=== PATIENT | female | born 1980 | race Caucasian/White ===

== ENCOUNTER 2016-10-01 10:00 | Outpatient (CLI) | payer OTHER ==
[~2016-10-01] VITALS: Ht 175.3 cm; Wt 146.1 kg
[2016-10-01] MEDS ORDERED: HYDR-3820 PO (10:28)
[2016-10-01] MEDS ORDERED: ONDN4T PO (10:28)
[2016-10-01] MEDS ORDERED: HYOS0.1218 SL (10:28)
[2016-10-01] MEDS ORDERED: TIZA4TAB3 PO (10:28)
[2016-10-01] MEDS ORDERED: TRAM50TA2 PO (10:28)
== END 2016-10-01 13:17 ==
LOC: PREOP 10:00
PROVIDERS: ATTEND Surgery
DX: Z01.818 Encounter for other preprocedural examination (principal); K82.8 Other specified diseases of gallbladder

== ENCOUNTER 2016-10-03 08:34 | Day surgery (SDC) | payer OTHER ==
[~2016-10-03] VITALS: Ht 175.3 cm; Wt 146.1 kg
[~2016-10-03 08:34] MED LIST: HYDR-3820 PO; HYOS0.1218 SL; ONDN4T PO; TIZA4TAB3 PO; TRAM50TA2 PO
[2016-10-03] MEDS ORDERED: ceFAZolin INJECTION 3,000 MG in NS (IVPB) 100 ML IV ONE (09:00)
[2016-10-03] MEDS ORDERED: LACTATED RINGERS 1,000 ML IV PRN (09:03)
[2016-10-03] MEDS ORDERED: FAMOTIDINE 20MG/2ML IV (PEPCID) IV ONE (09:15)
[2016-10-03 09:23] VITALS: BP 125/69
[2016-10-03 09:25] LABS: BASOPHILS % (AUTO) 0 % (0-10); EOSINOPHILS # (AUTO) 0.2 10^3/uL (0.0-0.3); EOSINOPHILS % (AUTO) 2 % (0-10); LYMPHOCYTES # (AUTO) 2.5 X 10^3 (1.0-4.0); LYMPHOCYTES % (AUTO) 34 % (12-44); MEAN CORPUSCULAR HEMOGLOBIN 30 PG (25-34); MEAN CORPUSCULAR HGB CONC 33 G/DL (32-36); MEAN CORPUSCULAR VOLUME 92 FL (80-99); MEAN PLATELET VOLUME 10.5 FL (7.4-10.4); MONOCYTES # (AUTO) 0.5 X 10^3 (0.0-1.0); MONOCYTES % (AUTO) 7 % (0-12); NEUTROPHILS # (AUTO) 4.1 X 10^3 (1.8-7.8); NEUTROPHILS % (AUTO) 57 % (42-75); PLATELET COUNT 255 10^3/uL (130-400); RED CELL DISTRIBUTION WIDTH 13.2 % (10.0-14.5); WHITE BLOOD COUNT 7.2 10^3/uL (4.3-11.0)
--- NOTE | 2016-10-03 09:36 | Progress Note-Pre Operative ---
Pre-Operative Progress Note H&P Reviewed The H&P was reviewed, patient examined and no changes noted. Date H&P Reviewed: Oct 03, 2016 Time H&P Reviewed: 09:32 Pre-Operative Diagnosis: Biliary Dyskinesia RJ MUÑIZ DO Oct 03, 2016 09:36
[2016-10-03] MEDS ORDERED: LIDOCAINE/EPI 1%-1:100,000 (XYLOCAINE) 20ML ONE (09:54)
[2016-10-03] MEDS ORDERED: fentaNYL INJECTION 250 MCG/5 ML AMP ONE (10:07)
[2016-10-03] MEDS ORDERED: SEVOFLURANE (ULTANE) 15 ML INHAL SOLN ONE (10:07)
[2016-10-03] MEDS ORDERED: DEXAMETHASONE PF 10 MG/ML (DECADRON) VIAL ONE (10:07)
[2016-10-03] MEDS ORDERED: proPOfol 200 MG/20 ML (DIPRIVAN) VIAL IV ONE (10:07)
[2016-10-03] MEDS ORDERED: ROCURONIUM 50 MG/5 ML (ZEMURON) VIAL IV ONE (10:07)
[2016-10-03] MEDS ORDERED: LACTATED RINGERS 1,000 ML IV ONE ×2 (10:07→12:04)
[2016-10-03] MEDS ORDERED: ONDANSETRON 4 MG/2 ML (SDV) Z0FRAN ONE ×2 (10:07→12:18)
[2016-10-03] MEDS ORDERED: LIDOCAINE PF 2% 10 ML (XYLOCAINE) AMP ONE (10:07)
[2016-10-03] MEDS ORDERED: MIDAZOLAM 2 MG/2 ML (VERSED) VIAL ONE (10:07)
[2016-10-03] MEDS ORDERED: morphine INJ 10 MG/ML 1ML (SYR OR VIAL) ONE (11:03)
[2016-10-03] MEDS ORDERED: GLYCOPYRROLATE 0.2 MG/ML (ROBINUL) 2 ML VIAL ONE (11:42)
[2016-10-03] MEDS ORDERED: NEOSTIGMINE (BLOXIVERZ ) 1 MG/1ML 10 ML VIAL ONE (11:42)
--- NOTE | 2016-10-03 11:46 | Progress Note-Post Operative ---
Post-Operative Progess Note Surgeon (s)/Pipe Fitter Welding (s) Surgeon RJ MUÑIZ DO Pipe [employer]itter [employer]ding: [place] Pre-Operative Diagnosis Biliary Dyskinesia Post-Operative Diagnosis same, small RIH Post-Op Procedure Note Date of Procedure: Oct 03, 2016 Name of Procedure Performed: Lap desirae with IOC Description of the Procedure: lap desirae Findings of the Procedure dilated GB Anesthesia Type GET Estimated blood loss (mL): scant Specimen(s) collected/removed GB and contents RJ MUÑIZ DO Oct 03, 2016 11:46
[2016-10-03] MEDS ORDERED: HYDR-3820 PO (11:47)
--- NOTE | 2016-10-03 11:51 | Discharge Inst-Surgical ---
Discharge Inst-Surgical Depart Medication/Instructions New, Converted or Re-Newed RX: RX Given to Pt/Family Patient Instructions Follow up Appt: Make appointment for 1 week. Call [phone] Instructions: No lifting greater than 10 pounds. No strenuous activity. May shower in 24 hours, no tub bath or soaking. Use incentive spirometer at home as directed. No Smoking Skin/Wound Care: May remove bandages. Glue will peel off on its own. Symptoms to Report: Appetite Changes, Extremity Discoloration, Numbness/Tingling, Swelling Increased , Bleeding Excessive, Eyesight Changes, Pain Increased, Urine Color Change, Constipation(Persistent), Fever over 101 degree F, Pain/Pressure in chest, Urinating Difficulty, Cough Up/Vomit Blood, Heart Beat Irreg/Pounding, Pain/ Pressure in jaw, Vaginal Bleeding Increase, Cramps in feet or legs, Lightheadedness, Pain/Pressure in shoulder, Diarrhea(Persistent), Memory Changes Suddenly, Questions/Concerns, Weight gain consecutive days, Dizziness/ Fainting, Nausea/Vomiting, Shortness of Breath, Weight gain over 2 pounds. If eyes or skin turn yellow notify physician. If questions or concerns contact your physician Or seek help at emergency department. Activity Activity as Tolerated: Yes Driving Instructions: No Driving/Refer to Diet Discharge Diet: Avoid Fatty Foods, Low Fat/Low Cholesterol If Any Problems/Questions/Issu: Contact Your Physician, Go to Emergency Room Skin/Wound Care Infection Signs and Symptoms: Increased Redness, Foul Odor of Wound, Increased Drainage, Increased Swelling, Temperature Above 101 F Bathing Instructions: Shower Operative Area Clean and Dry: Keep Incision Clean/Dry Stitches/[place]/Dermabond Dis: Dermabond Ice Pack: Ice On and Off Site RJ MUÑIZ DO Oct 03, 2016 11:51
[2016-10-03] MEDS ORDERED: HYDROcodone/APAP 7.5 MG/325 MG (LORTAB, LORCET PLUS) TABLET PO PRN (12:00)
[2016-10-03] MEDS ORDERED: ONDANSETRON 4 MG/2 ML (SDV) Z0FRAN IV PRN (12:15)
[2016-10-03] MEDS ORDERED: PROMETHAZINE INJ 25 MG/ML (PHENERGAN) AMP IV PRN (12:15)
[2016-10-03] MEDS: morphine INJ 10 MG/ML 1ML (SYR OR VIAL) IV PRN ×2 (12:20→12:25)
--- NOTE | 2016-10-03 12:23 | Diagnostic Imaging Report ---
Intraoperative cholangiogram. INDICATION: Abdominal pain. Laparoscopic cholecystectomy. Fluoroscopic time provided is 34 seconds. 7 cc of Omnipaque 300 is administered. IMPRESSION: Provided image demonstrates normal caliber of the CBD. No filling defect to suggest stone. There is passage of contrast into the duodenum with no evidence of obstruction. Dictated by: Dictated on workstation # [id number]
[2016-10-03 12:55] VITALS: BP 129/86
[2016-10-03 13:25] VITALS: BP 127/72
[2016-10-03 13:55] VITALS: BP 134/74
[2016-10-03 14:15] VITALS: BP 134/74
--- NOTE | 2016-10-03 14:47 | OPERATIVE REPORT ---
PROCEDURE PHYSICIAN: RJ CHOU DATE OF PROCEDURE: 10/03/2016 PREOPERATIVE DIAGNOSIS: Biliary dyskinesia. POSTOPERATIVE DIAGNOSES: 1. Biliary dyskinesia. 2. Beginning of a small right inguinal hernia. PROCEDURE: 1. Laparoscopic cholecystectomy. 2. Intraoperative cholangiogram. SURGEON: Dr. Chou. LICENSED PROSTHETIST/ORTHOTIST: Dr. Paulino. ANESTHESIA: General endotracheal tube. SPECIMEN: Gallbladder and contents. BLOOD LOSS: Scant. FLUIDS: Per anesthesia. POSTOPERATIVE: Stable. INDICATION FOR THE PROCEDURE: The patient is a 36-year-old female who has been having abdominal pain especially with fried, fatty foods and then started be everything. An ultrasound showed no stones but HIDA scan which showed low ejection fraction, abnormal functioning gallbladder and biliary dyskinesia. FINDINGS: The patient had a dilated gallbladder usually indicative of a nonfunctioning gallbladder and what looked like the beginning of a small right inguinal hernia. PROCEDURE NOTE: After informed consent was obtained, the patient brought to the operating room, placed on the table in supine position. She was sterilely prepped and draped in the normal fashion. Local lidocaine used to infiltrate the skin above the umbilicus. An incision with a number 11 blade, carried down through skin into subcutaneous tissue and the deepened down the subcutaneous tissue with Bovie electrocautery down to the fascia. The fascia was incised with Bovie electrocautery and then bluntly entered the abdomen, swept the finger around, placed 0 Vicryl [id number] suture and then placed an 11 mm trocar port under direct visualization, created pneumoperitoneum and placed 3 more ports in normal fashion using local lidocaine 11 blade for stab incision and the versa step system all done under direct visualization. One subxyphoid and 2 in the right upper quadrant. The patient was then placed reversed Trendelenburg. I was able to grasp the gallbladder at the fundus and taken in superior direction. Then grasped down Kt's pouch and pulled in the inferolateral direction and started dissecting out the cystic duct and cystic artery. Able to get around the cystic duct and cystic artery. Placed one clip distally on the cystic duct and then one distally and 2 proximally on the cystic artery. Cut the cystic duct half way through with Metzenbaum scissors. Placed cholangiogram catheter. I had to put a clip on it to hold it in place. Shot a cholangiogram. Good spillage of dye down the common bile duct into the small intestine as well as up the common hepatic and right and left hepatics. No filling defect seen. Removed the cholangiogram catheter, then placed 3 clips proximally on the cystic duct and cut the cystic duct and cystic artery with Metzenbaum scissors. Then removed the gallbladder from the bed of the liver with L hook cautery. Once this was completely removed, placed a bag in the abdomen, placed the gallbladder in the bag and then removed this through supraumbilical incision. Placed the port back in the abdomen. Copiously irrigated with normal saline, suctioned this out. There was no bleeding from the bed of the liver. Clips were in place. Pictures were taken and then placed patient supine. Removed all ports under visualization allowing pneumoperitoneum to escape as well as suctioned out and then closed the supraumbilical incision with 0 Vicryl suture previously placed. Copiously irrigated all incisions with normal saline. Then closed the 3 small 5 mm incision with single interrupted 4-0 undyed Monocryl subcuticular stitch, closed the supraumbilical incision with 3 interrupted 4-0 undyed Monocryl subcuticular stitch. The area was cleaned and dried and Dermabond placed. The patient then transferred to recovery room in stable condition. Sponge, instrument and needle correct at the end of the case. Job ID: [id number] Dictated Date: 10/03/2016 11:55:46 Biomaterials Engineer Date: 10/03/2016 14:31:14 / xochitl FLETCHER
== END 2016-10-03 14:15 | disposition home or self-care (01) ==
LOC: DELPENDDIS → SDC 08:34
PROVIDERS: ATTEND Surgery
DX: K81.1 Chronic cholecystitis (principal); K40.90 Unilateral inguinal hernia, without obstruction or gangrene, not specified as recurrent
CPT/HCPCS: 36415; 84703; 85025; 87081; 88304